=== PATIENT | female | born 1975 | race Caucasian/White ===

== ENCOUNTER 2020-07-24 10:39 | Day surgery (SDC) | payer BC ==
[~2020-07-24] VITALS: Ht 175.3 cm; Wt 140.0 kg
[~2020-07-24 10:39] MED LIST: BUPIVACAINE/PF 0.25% ONE; IBUP-1623 PO; [UNRECOGNIZED DRUG - OTHER] PO
[2020-07-24] MEDS ORDERED: CHLORHEXIDINE 15 ML UDC ONE (11:22)
[2020-07-24] MEDS ORDERED: CHLORHEXIDINE 15 ML UDC MM ONE (11:30)
[2020-07-24] MEDS ORDERED: LACTATED RINGERS 1,000 ML IV SCH (11:30)
[2020-07-24] MEDS ORDERED: FENTANYL PF 250 MCG/5ML ONE (12:39)
[2020-07-24] MEDS ORDERED: ONDANSETRON 2MG/ML, 2ML ONE (12:54)
[2020-07-24] MEDS ORDERED: CEFOTETAN 2 GM ONE (12:54)
[2020-07-24] MEDS ORDERED: METOCLOPRAMIDE 5 MG/ML, 2ML ONE (12:54)
[2020-07-24] MEDS ORDERED: BUPIVACAINE/PF 0.5% INFIL ONE (12:54)
[2020-07-24] MEDS ORDERED: PROPOFOL 10 MG/ML, 20ML ONE (12:54)
[2020-07-24] MEDS ORDERED: SUGAMMADEX 200 MG/2 ML IVPush ONE (12:54)
[2020-07-24] MEDS ORDERED: KETOROLAC 30 MG/1 ML ONE (12:54)
[2020-07-24] MEDS ORDERED: DEXAMETHASONE 4 MG/ML, 5ML ONE (12:54)
[2020-07-24] MEDS ORDERED: ACETAMINOPHEN 325 MG TABLET PO PRN (13:30)
[2020-07-24] MEDS ORDERED: FENTANYL PF 100 MCG/2ML IV PRN (13:30)
[2020-07-24] MEDS ORDERED: HYDROmorphone 1 MG/ML, 1ML INJ IVPush PRN (13:30)
[2020-07-24] MEDS ORDERED: ONDANSETRON 2MG/ML, 2ML IVPush PRN (13:30)
[2020-07-24] MEDS ORDERED: OXYcodone 5 MG/5 ML ORAL.SOL UDC PO PRN (13:30)
[2020-07-24] MEDS ORDERED: MEPERIDINE/PF 25MG/0.5ML IVPush PRN (13:30)
[2020-07-24] MEDS ORDERED: METHOCARBAMOL 1,000 MG in DEXTROSE 5% 100 ML IV PRN ×2 (13:30→14:30)
[2020-07-24] MEDS ORDERED: LORazepam 2 MG/ML, 1ML IVPush PRN (13:30)
[2020-07-24] MEDS ORDERED: EPHEDRINE 50 MG/ML, 1ML IVPush PRN (13:30)
[2020-07-24] MEDS ORDERED: hydrALAzine 20 MG/ML, 1ML IV PRN (13:30)
[2020-07-24] MEDS ORDERED: HALOPERIDOL 5 MG/ML IV PRN (13:30)
[2020-07-24] MEDS ORDERED: EPHEDRINE 50 MG/ML, 1ML IM PRN (13:30)
[2020-07-24] MEDS ORDERED: LABETALOL 5MG/ML, 20ML IV PRN (13:30)
[2020-07-24] MEDS ORDERED: PROMETHAZINE 25 MG/ML, 1ML IVPush PRN (13:30)
[2020-07-24] MEDS ORDERED: ACETAMINOPHEN 650 MG/20.3 ML UDC ONE (14:04)
[2020-07-24] MEDS ORDERED: PROMETHAZINE 25 MG/ML, 1ML ONE (14:53)
[2020-07-24] MEDS ORDERED: OXYcodone 5 MG/5 ML ORAL.SOL UDC ONE (14:53)
== END 2020-07-24 17:05 | disposition home or self-care (01) ==
LOC: OUT 10:39
PROVIDERS: ATTEND Surgery
DX: K43.9 Ventral hernia without obstruction or gangrene (principal); K43.2 Incisional hernia without obstruction or gangrene; E66.01 Morbid (severe) obesity due to excess calories; F12.90 Cannabis use, unspecified, uncomplicated; F17.210 Nicotine dependence, cigarettes, uncomplicated; Z88.5 Allergy status to narcotic agent; Z88.8 Allergy status to other drugs, medicaments and biological substances; Z72.89 Other problems related to lifestyle; Z79.899 Other long term (current) drug therapy; Z90.49 Acquired absence of other specified parts of digestive tract; Z98.890 Other specified postprocedural states; Z68.42 Body mass index [BMI] 45.0-49.9, adult; Z82.49 Family history of ischemic heart disease and other diseases of the circulatory system; Z83.3 Family history of diabetes mellitus
CPT/HCPCS: 49560; 49568; 81025; C1781; J1100; J1885; J2405; J2550; J2704; J2765; J2800; J3010; J7120